=== PATIENT | female | born 1995 ===

== ENCOUNTER → 2018-11-02 | Outpatient (REF) | payer OTHER | LOC: M LAB REF 12:16 | PROVIDERS: ATTEND Physician Assistant | DX: J30.9 Allergic rhinitis, unspecified (principal) ==

== ENCOUNTER 2020-11-10 00:27 | Inpatient (IN) | payer OTHER ==
[2020-11-10] VITALS (40 sets, daily range): BP systolic 104–173; BP diastolic 52–90
[~2020-11-10] VITALS: Ht 182.9 cm; Wt 100.8 kg
[2020-11-10] MEDS ORDERED: PRENTAB9 PO (01:20)
[2020-11-10 01:37] LABS: HEMATOCRIT 34.1 % (36.0-47.0); HEMOGLOBIN 11.7 g/dl (12.0-15.5); MEAN CORPUSCULAR HEMOGLOBIN 31.2 pg (27.0-33.0); MEAN CORPUSCULAR HGB CONC 34.3 g/dl (32.0-36.5); MEAN CORPUSCULAR VOLUME 90.9 fl (80.0-96.0); PLATELET COUNT, AUTOMATED 229 10^3/uL (150-450); RED BLOOD COUNT 3.75 10^6/uL (4.00-5.40); WHITE BLOOD COUNT 8.5 10^3/uL (4.0-10.0)
[2020-11-10] MEDS ORDERED: OXYTOCIN 30 UNITS IN 0.9% NaCl 500ML IV BAG (J2590) As Ordered ONE (02:58)
--- NOTE | 2020-11-10 03:15 | HPEPDOC ---
Obstetrical History & Physical General Date of Admission Nov 10, 2020 at 01:03 History of Present Illness 24yo at 40+0wks presenting for PROM of clear fluid at 2345 on [id number]. She endorses mild irregular ctx's. Denies VB or LOF. Chief Complaint: LOF, term Information Provided By: Patient Care Care: Good Care Dating Final EDC: Nov 10, 2020 Final EDC for Daily Update: Nov 10, 2020 Final EDC by: LMP (c/w [id number] at 11+1wks) Antepartum Course Diagnos(e)s Varicella non-immune Height (inches): 72 Pre- weight (lbs.): 185 Admission Weight (lbs.): 217 Change in Weight (lbs.): 32 Past Medical History Past Obstetrical History : Past Obstetrical History: Primgravida CLAIMS COUNSEL History: No pertinent history Past Medical History Medical History Denies Surgical History: [place] teeth Family History Significant Family History: Asthma, Diabetes, Heart disease, Hypertension, Lung disease, Renal disease Social History Marital Status: Family situation: Spouse/partner home Psychosocial History: No pertinent psych hx * Smoker: non-smoker Alcohol: Denies Drugs: denies Abuse Violence Screening Have you been hit/kicked/slapp: No Have you been sexually assault: No Imunizations Tdap status: current ([id number]) Influenza Status: current ([id number]) Allergies Coded Allergies: No Known Allergies (Unverified , 11/10/20) Medications Scheduled No.137/Iron/Folic Acd ( Vitamin Tablet) 1 Each Tablet, 1 TAB PO QHS Physical Examination Physical Examination GENERAL: Alert and oriented times three. ABDOMEN: Gravid and non-tender to touch. FETUS: Is vertex (VTX) by leopolds HEART RATE: well-perfused LUNGS: no exaggerated respiratory effort appreciated EXTREMITIES: No edema. Vital Signs/I&O Vital Signs Date Time Temp Pulse Resp B/P (MAP) Pulse Ox O2 Delivery O2 Flow Rate FiO2 11/10/20 00:49 99.0 90 18 139/78 (98) Laboratory Data 24H LABS Laboratory Tests 2 11/10/20 01:08: Serology Scanned Report Hepatitis B Testing 11/10/20 01:27: Nucleated Red Blood Cells % (auto) 0.0 CBC/BMP Laboratory Tests 11/10/20 01:27 Urine Culture: No Growth Pertinent Laboratoy Data Blood Type: A+ RBC Antibody Screen: Negative HIV: Negative Hepatitis B: Negative Rapid Plasma Reagin: Nonreactive Rubella: Immune Varicella: Nonreactive Chlamydia/Gonorrhea: Negative Group B Streptococcus: Negative Quad Screen Test: Declined Cystic Fibrosis: Negative Glucose Tolerance Test: 93 Anatomy Ultrasound Ultrasound Date: Jun 24, 2020 Placenta Location: Anterior Normal Anatomy: Yes Vaginal Examination Dilation: 3 cm Effacement: 60% Station: 0 Cervical Consistency: Soft Cervical Position: Posterior Presentation: Cephalic presentation Assessment Heart Rate (FHR): 150 Variability: Moderate Accelerations: Positive Decelerations: None Tocometer Contractions: Yes Frequency: greater than 9 min/apart Multi-drug resistant Organism: No history of MDRO Assessment/Plan Assessment Sunitha is a 24yo at 40+0wks presenting for PROM of fluids at 2345 on [id number]. NST cat I with irregular ctx's that patient is not feeling. Normotensive, afebrile. SVE by RN . GBS neg. EFW 3600g Plan Admit and orient. Machine Shorthand Reporter and consent. Diet: clears as tolerated Group B Streptococcus (GBS) negative. Labs and intravenous (IV) per unit protocol. Counseled on Pitocin and augmentation of labor (IOL). Lactated Ringers (LR): at 125 mL/hr. Patient encouraged to labor out of bed as desired unless changes her mind and desires epidural then bedrest as appropriate Patient may have epidural if desired Anticipate normal spontaneous delivery (). C-S as appropriate. CHITRA IVEY DO Nov 10, 2020 03:15
--- NOTE | 2020-11-10 06:54 | IPNPDOC ---
Obstetrical Progress Note Date of Service Nov 10, 2020 Subjective Patient feeling worsening pain with ctx's and pelvic pressure. She declines epidural at this time. Objective Vital Signs Date Time Temp Pulse Resp B/P (MAP) Pulse Ox O2 Delivery O2 Flow Rate FiO2 11/10/20 05:34 111 18 129/75 (93) 11/10/20 03:08 98.2 Assessment Heart Rate Tracing: Category I Tocometer Contractions: Yes Frequency: every 2-2 min. Sterile Vaginal Examination Dilation: 9 cm Effacement (%): 100% Station: 0 Cervical Consistency: Soft Cervical Position: Anterior Postion/Presentation: Cephalic presentation Assessment and Plan Status: Reassuring Group B Streptococcus: Negative Anticipate: Vaginal Delivery Additional Comments SVE by RN now at 9/c/0. Tachysystole noted on tocometry, pitocin decreased. Patient has made excellent progress. Declines need for pain mgmt at this time. FHRT cat I. Patient desires to proceed, safe to continue. CHITRA IVEY DO Nov 10, 2020 06:54
[2020-11-10] MEDS ORDERED: FENTANYL 2MCG/ML ROPIVACAINE 0.2% IN 0.9% NACL 100ML IVBAG As Ordered ONE (07:53)
[2020-11-10] MEDS ORDERED: diphenhydrAMINE 50MG/ML VIAL (J1200) IV PRN (08:35)
[2020-11-10] MEDS ORDERED: NALOXONE INJ 0.4MG/1ML VIAL (J2310 PER 1MG) IV PRN (08:35)
[2020-11-10] MEDS ORDERED: EPIDURAL COMMENT XX SCH (08:35)
[2020-11-10] MEDS ORDERED: LACTATED RINGER'S 1000 ML IV PRN (08:35)
[2020-11-10] MEDS ORDERED: REFRIGERATOR IV KEYS XX PRN (08:35)
[2020-11-10] MEDS ORDERED: ePHEDrine SULFATE 25 MG/5 ML(5MG/ML) SYRINGE IV PRN (08:35)
[2020-11-10] MEDS ORDERED: EPIDURAL/PCA KEYS XX PRN (08:35)
[2020-11-10] MEDS ORDERED: ONDANSETRON 4MG/2ML VIAL IV PRN (08:35)
[2020-11-10] MEDS ORDERED: FENTANYL/ROPIVACAINE/NACL BAG 100 ML EPIDURAL SCH (08:35)
[2020-11-10] MEDS: PRENATAL VITAMINS CHEWABLE TABLET PO SCH (09:00)
--- NOTE | 2020-11-10 09:31 | IPNPDOC ---
Obstetrical Progress Note Date of Service Nov 10, 2020 Subjective 24 yo at 40w0d with IVÁN of 10 NOV 2020 admitted for labor. She is now comfortable with her epidural. She has no complaints at this time. She has supportive family at the bedside. Objective Vital Signs Date Time Temp Pulse Resp B/P (MAP) Pulse Ox O2 Delivery O2 Flow Rate FiO2 11/10/20 05:34 111 18 129/75 (93) 11/10/20 03:08 98.2 16F Indwelling urinary catheter placed without difficulty. Patient tolerated procedure well. Cervical exam: 8-9/100/0 Assessment Heart Rate (FHR): 135 Variability: Moderate Accelerations: None Decelerations: Variable Tocometer Contractions: Yes Duration: other (every 3-4 minutes) Sterile Vaginal Examination Dilation: 8 cm Effacement (%): 100% Station: 0 Postion/Presentation: Cephalic presentation Assessment and Plan Age: 24 : 1 Term: 0 Pre-term: 0 Abortions: 0 Livin EGA at Admission: 40 (+0) Weeks & Days 40w0d Status: Reassuring Group B Streptococcus: Negative Anticipate: Vaginal Delivery YASHIRA PARKER CNM Nov 10, 2020 09:31
--- NOTE | 2020-11-10 14:04 | DNPDOC ---
[facility] Delivery Note Delivery Note Date of the procedure: 11/10/2020 Preoperative diagnosis: 1. 24 y/o at 40w0d 2. Active labor 3. GBS negative 4. A positive Postoperative diagnosis: 1. 24 y/o now at 40w0d 2. Active labor 3. GBS negative 4. A positive 5. Second degree perineal laceration 6. Bilateral labial lacerations Procedure: Delivering Provider: FAHAD Mary CNM, SAVANA Mechanical Technical Service Specialist Back-up: Ricardo Lizarraga DO Anesthesia: Epidural EBL: 400 Specimens: Cord blood gases collected Findings: Live male weighing 8 lb 14 oz, 4030 grams with Apgars of 8 and 9 at 1 and 5 minutes respectively. Complications: None Details of the procedure: The patient presented complaining of leaking of clear fluid and was found to be in active labor. Patient was 3 cm dilated and was then admitted to L&D. Labor progressed with Pitocin and membranes were ruptured spontaneously for clear fluid.. The patient progressed to fully dilated and entered the second stage of labor, at which point she began to push over an intact perineum. The head was then delivered. The nuchal cord was not noted. The rest of the was delivered. The infant was placed on maternal abdomen and the cord was doubly clamped and cut. Cord blood was not collected and a 3 vessel cord was noted. Manual exploration of the uterus was not performed. Uterine tone was firm. Perineum was inspected and a second degree perineal laceration and bilateral labial lacerations were found. These were repaired with 2-0 and 3-0 chromic. Cervical exam was normal. Rectal exam was not noted. Sponge, instrument, and needle counts were correct. The patient tolerated the procedure well and is stable in recovery. Note was written and electronically signed by: FAHAD Mary CNM, YASHIRA GARZA CNM Nov 10, 2020 14:01
[2020-11-10] MEDS ORDERED: OXYTOCIN DRIP 30 UNITS in IV 1 EA IV SCH (14:11)
[2020-11-10 14:14] LABS: CORD GAS ABE A -9.1; CORD GAS ABE V -9.1; CORD GAS HCO3 A 18.7 MEQ/L; CORD GAS HCO3 V 18.3 MEQ/L; CORD GAS O2 SAT A 31.3 %; CORD GAS O2 SAT V 34.9 %; CORD GAS PCO2 A 47.3 mmHg; CORD GAS PCO2 V 44.7 mmHg; CORD GAS PH A 7.215 UNITS; CORD GAS PH V 7.229 UNITS; CORD GAS PO2 A 19.5 mmHg; CORD GAS PO2 V 20.8 mmHg; CORD GAS SBC A 15.9 MEQ/L; CORD GAS SBC V 15.9 MEQ/L; CORD GAS TCO2 A 20.2 MEQ/L; CORD GAS TCO2 V 19.6 MEQ/L
[2020-11-10] MEDS ORDERED: ACETAMINOPHEN TAB 650MG DOSE (2X325MG) PO PRN (14:15)
[2020-11-10] MEDS ORDERED: PROMETHAZINE 25 MG TAB PO PRN (14:15)
[2020-11-10] MEDS ORDERED: DIBUCAINE 1% OINTMENT 30GM TOP PRN (14:15)
[2020-11-10] MEDS ORDERED: METHYLERGONOVINE MALEATE 0.2 MG TAB PO PRN (14:15)
[2020-11-10] MEDS ORDERED: IBUPROFEN 600MG TAB PO PRN (14:15)
[2020-11-10] MEDS ORDERED: MEASLES,MUMPS,RUBELLA VACCINE INJ (MMR-II) (90707) SC SCH (14:15)
[2020-11-10] MEDS: IBUPROFEN 800 MG TAB PO PRN (15:31)
[2020-11-10] MEDS ORDERED: SLF 3 ML SYR IV PRN (17:05)
[2020-11-10] MEDS: SLF 3 ML SYR IV SCH (21:41)
[2020-11-11 06:04] VITALS: BP 119/71
[2020-11-11] MEDS: IBUPROFEN 800 MG TAB PO PRN ×2 (06:05→13:11)
[2020-11-11] MEDS: SLF 3 ML SYR IV SCH ×3 (06:05→22:00)
[2020-11-11 06:09] LABS: HEMATOCRIT 26.4 % (36.0-47.0); MEAN CORPUSCULAR HEMOGLOBIN 31.7 pg (27.0-33.0); MEAN CORPUSCULAR HGB CONC 33.7 g/dl (32.0-36.5); PLATELET COUNT, AUTOMATED 173 10^3/uL (150-450); RED BLOOD COUNT 2.81 10^6/uL (4.00-5.40); WHITE BLOOD COUNT 10.1 10^3/uL (4.0-10.0)
[2020-11-11 06:16] LABS: HEMOGLOBIN 8.9 g/dl (12.0-15.5)
--- NOTE | 2020-11-11 07:18 | IPNPDOC ---
Progress Note Date of Service: Nov 11, 2020 Day#: 1 Progress Note SUBJECT: 24yo PPD1 s/p c/b 2MLL, uncomplicated. She has been ambulating, voiding spontaneously without issue and tolerating regular diet. Breast feeding without issue. Reports lochia is [like a normal period]. Patient is ambulating well. [Reports some cramping with . Denies any pain. Voiding and passing flatus without difficulty]. OBJECTIVE: VITAL SIGNS: Within normal limits, afebrile. Alert and oriented times three. No increased WOB Non-tachy Abdomen: Fundus firm at U-2. Soft, NTTP. [Minimal] lochia per pt ASSESSMENT: 24yo PPD1 s/p c/b 2MLL, uncomplicated. Vitals within normal limits, afebrile, hemodynamically stable with no evidence of infection. PLAN: 1. Discharge to home likely tomorrow 2. Tylenol and Motrin for pain. 3. Encourage breast feeding and ambulation. 4. [Minipill] for contraception - ordered in [facility] 5. Routine PP visit in 6 weeks in clinic. 6. Discussed return precautions at length. VS, I&O, 24H, Fishbone Vital Signs/I&O Vital Signs Date Time Temp Pulse Resp B/P (MAP) Pulse Ox O2 Delivery O2 Flow Rate FiO2 11/11/20 06:04 98.3 79 18 119/71 (87) 11/10/20 15:53 99 I&O- Last 24 Hours up to 6 AM 11/11/20 06:00 Intake Total 360 ml Output Total 1325 ml Balance -965 ml Laboratory Data 24H LABS Laboratory Tests 2 11/10/20 14:03: Cord Arterial Blood pH 7.215, Cord Arterial Blood PCO2 47.3, Cord Arterial Blood PO2 19.5, Cord Arterial Blood HCO3 18.7, Cord Arterial Blood Total CO2 20.2, Cord Arterial Blood Base Excess -9.1, Cord Arterial Base Excess (Standard 15.9, Cord Arterial Bld Oxygen Saturation 31.3, Cord Venous Blood pH 7.229, Cord Venous Blood PCO2 44.7, Cord Venous Blood PO2 20.8, Cord Venous Blood HCO3 18.3, Cord Venous Blood Total CO2 19.6, Cord Venous Base Excess (Actual) -9.1, Cord Venous Base Excess (Standard) 15.9, Cord Venous Blood Oxygen Saturation 34.9 11/11/20 05:40: Nucleated Red Blood Cells % (auto) 0.0 CBC/BMP Laboratory Tests 11/11/20 05:40 ESDRAS GARCIA DO Nov 11, 2020 07:18
[2020-11-11] MEDS: PRENATAL VITAMINS CHEWABLE TABLET PO SCH (09:11)
[2020-11-11] MEDS: DOCUSATE SODIUM 100MG CAPSULE PO PRN (10:32)
[2020-11-11 17:38] VITALS: BP 116/58
[2020-11-11] MEDS: ACETAMINOPHEN 500 MG TAB PO PRN (20:14)
[2020-11-12] MEDS: IBUPROFEN 800 MG TAB PO PRN (05:12)
[2020-11-12] MEDS: SLF 3 ML SYR IV SCH (06:00)
[2020-11-12 06:25] VITALS: BP 136/66
[2020-11-12] MEDS ORDERED: IBUP-1022 PO (06:51)
[2020-11-12] MEDS ORDERED: DOK1CAP7 PO (06:51)
--- NOTE | 2020-11-12 06:58 | DSES ---
DISCHARGE SUMMARY DATE OF ADMISSION: 11/10/2020 DATE OF DISCHARGE: 11/12/2020 BRIEF HISTORY: This lady is a 24-year-old 1 now para 1, admitted with premature rupture of membranes and mild contractions at 40 weeks, had a spontaneous vaginal delivery male , 8 pounds, 14 ounces or 4030 grams, Apgars of 8 and 9 at 1 and 5 minutes respectively. On her second day we discussed phlebitis, cystitis, mastitis, endometritis and cellulitis, diet, exercise, pain management, breast and perineal care. PHYSICAL EXAMINATION: The rest of the examination was unremarkable. Normocephalic, atraumatic. Neck with full range of motion. Pupils equal and reactive to light. Distal pulses are symmetric. No evidence of DVT, PE or superficial phlebitis. Chest is clear bilaterally at the bases. No wheezes or rhonchi. No CVA tenderness. Abdomen was soft. Four quadrant bowel sounds are noted. Uterus two below, lochia is moderate. Perineum is intact. No rashes, lesions or pruritus. No arthralgias or myalgias. No complaint of joint pain. No complaint of cough, wheeze, shortness of breath or dyspnea on exertion. No nausea, vomiting, diarrhea or constipation. No urgency or frequency. In summary, we have a term gestation delivered live male . On discharge, blood pressure is 136/66, respirations 18, pulse 83, temperature is 98.0. Her admitting hemoglobin 11.7, hematocrit 34.1 and platelets were 229,000. Her discharge hemoglobin 8.9, hematocrit 26.4 and platelets were 173,000. Arterial blood gas for baby was 7.21, base excess -9.1, venous pH 7.22, base excess -9.1. Patient has her medications picked up from [place]. She has a six week checkup at [facility]. All questions were answered, a 20 minute discussion. Patient was discharged improved. cc: [facility] [employer]
[2020-11-12] MEDS: DOCUSATE SODIUM 100MG CAPSULE PO PRN (08:01)
[2020-11-12] MEDS: PRENATAL VITAMINS CHEWABLE TABLET PO SCH (08:01)
[2020-11-12] MEDS: ACETAMINOPHEN 500 MG TAB PO PRN (08:02)
== END 2020-11-12 10:35 | disposition home or self-care (01) | DRG 807 ==
LOC: M LDO 00:27 → M LDI 01:03 → M OBS 15:41
PROC: 10E0XZZ Delivery of Products of Conception, External Approach (ICD-10-PCS; principal; 2020-11-10)
PROC: 0KQM0ZZ Repair Perineum Muscle, Open Approach (ICD-10-PCS; 2020-11-10)
PROC: 0HQ9XZZ Repair Perineum Skin, External Approach (ICD-10-PCS; 2020-11-10)
DX: O42.02 Full-term premature rupture of membranes, onset of labor within 24 hours of rupture (principal); Z37.0 Single live birth; O70.1 Second degree perineal laceration during delivery; Z3A.40 40 weeks gestation of pregnancy; O70.0 First degree perineal laceration during delivery